=== PATIENT | male | born 1945 | race Caucasian/White ===

== ENCOUNTER 2018-10-03 12:31 | Outpatient (REF) | payer MEDICARE, SELFPAY ==
[2018-10-03 21:19] LABS: ALT 16 U/L (12-78); Anion Gap 12.2 mmol/L (3-11); BUN 20 mg/dL (7-18); CO2 26.8 mmol/L (21.0-32.0); CREATININE 0.88 mg/dL (0.70-1.30); Calcium 9.3 mg/dL (8.5-10.1); Chloride 99 mmol/L (98-107); Glucose 64 mg/dL (70-100); LDL CHOLESTEROL 95 mg/dL (<100); Potassium 3.8 mmol/L (3.5-5.1); Sodium 138 mmol/L (136-145)
== END 2018-10-03 12:51 ==
LOC: NCHCN 12:31
PROVIDERS: PCP Internal Medicine; Visit Provider Internal Medicine
DX: L40.4 Guttate psoriasis (principal); I10 Essential (primary) hypertension; H02.409 Unspecified ptosis of unspecified eyelid; E66.9 Obesity, unspecified
CPT/HCPCS: 80048; 83721; 84460

== ENCOUNTER 2019-08-15 20:48 | Outpatient (REF) | payer MEDICARE, OTHER, SELFPAY ==
[2019-08-15 21:40] LABS: Anion Gap 8.2 mmol/L (3-11); BUN 22 mg/dL (7-18); CO2 28.8 mmol/L (21.0-32.0); CREATININE 0.93 mg/dL (0.70-1.30); Calcium 9.3 mg/dL (8.5-10.1); Chloride 103 mmol/L (98-107); Glucose 80 mg/dL (70-100); LDL CHOLESTEROL 87 mg/dL (<100); Sodium 140 mmol/L (136-145)
== END 2019-08-15 21:08 ==
LOC: NCHCN 20:48
PROVIDERS: PCP Internal Medicine; Visit Provider Internal Medicine
DX: I10 Essential (primary) hypertension (principal); M54.12 Radiculopathy, cervical region; E66.9 Obesity, unspecified
CPT/HCPCS: 80048; 83721

== ENCOUNTER 2020-05-14 12:23 | Outpatient (REF) | payer MEDICARE, OTHER, SELFPAY ==
[2020-05-14 19:48] LABS: Anion Gap 12.1 mmol/L (3-11); BUN 17 mg/dL (7-18); CO2 23.9 mmol/L (21.0-32.0); CREATININE 0.81 mg/dL (0.70-1.30); Calcium 9.3 mg/dL (8.5-10.1); Chloride 102 mmol/L (98-107); Glucose 90 mg/dL (74-106); LDL CHOLESTEROL 89 mg/dL (<100); Potassium 3.9 mmol/L (3.5-5.1); Sodium 138 mmol/L (136-145)
== END 2020-05-14 12:43 ==
LOC: NCHCN 12:23
PROVIDERS: PCP Internal Medicine; Visit Provider Internal Medicine
DX: I10 Essential (primary) hypertension (principal); E66.9 Obesity, unspecified
CPT/HCPCS: 80048; 83721